=== PATIENT | male | born 1985 | race Caucasian/White ===

== ENCOUNTER 2020-04-20 08:03 | Emergency (ER) | payer SELFPAY ==
[~2020-04-20] VITALS: Ht 182.9 cm; Wt 112.0 kg
[2020-04-20 08:19] VITALS: BP 156/70
--- NOTE | 2020-04-20 08:35 | PHYS DOC ---
Past History Past Medical History: No Pertinent History Past Surgical History: No Surgical History Alcohol Use: Rarely Drug Use: None General Adult EDM: Chief Complaint: FLANK PAIN HPI: HPI: History obtained from patient. Patient is a 34-year-old male with no reported past medical history presents with chief complaint of sudden onset left flank pain 4 hours prior to arrival. He states the pain is sharp in nature and radiates to his left groin. He states it starts in his left mid flank. Does note to episodes of nonbloody nonbilious emesis. Denies fevers. States it is difficult to find a position of comfort. Denies history of kidney stones. Denies dysuria, hematuria, or polyuria. Denies decreased urinary output. States he does feel pelvic pressure like he has to have a bowel movement. States he did have a normal vomit yesterday. Denies syncope. Denies chest pain or shortness of breath. Denies cough or fever. Has not tried medicine prior to arrival. No other complaints. Review of Systems: Review of Systems: Constitutional: Denies fever or chills Eyes: Denies change in visual acuity HENT: Denies nasal congestion or sore throat Respiratory: Denies cough or shortness of breath Cardiovascular: Denies chest pain or edema GI: Positive for left flank pain : Denies dysuria Musculoskeletal: Denies back pain or joint pain Integument: Denies rash Neurologic: Denies headache, focal weakness or sensory changes Endocrine: Denies polyuria or polydipsia Lymphatic: Denies swollen glands Psychiatric: Denies depression or anxiety Allergies: Allergies: Allergies Coded Allergies Type Severity Reaction Last Updated Verified No Known Drug Allergies 11/06/15 No Physical Exam: PE: Constitutional: Well developed, well nourished, no acute distress, non-toxic appearance. [] HENT: Normocephalic, atraumatic, bilateral external ears normal, oropharynx moist, no oral exudates, nose normal. [] Eyes: PERRLA, EOMI, conjunctiva normal, no discharge. [] Neck: Normal range of motion, no tenderness, supple, no stridor. [] Cardiovascular:Heart rate regular rhythm, no murmur [] Lungs & Thorax: Bilateral breath sounds clear to auscultation [] Abdomen: Mild left CVA tenderness. Skin: Warm, dry, no erythema, no rash. [] Back: No tenderness, no CVA tenderness. [] Extremities: No tenderness, no cyanosis, no clubbing, ROM intact, no edema. [] Neurologic: Alert and oriented X 3, normal motor function, normal sensory function, no focal deficits noted. [] Psychologic: Affect normal, judgement normal, mood normal. [] Current Patient Data: Labs: Laboratory Tests Test 04/20/20 08:26 White Blood Count 9.7 x10^3/uL Red Blood Count 5.52 x10^6/uL Hemoglobin 16.8 g/dL Hematocrit 49.5 % Mean Corpuscular Volume 90 fL Mean Corpuscular Hemoglobin 30 pg Mean Corpuscular Hemoglobin Concent 34 g/dL Red Cell Distribution Width 13.6 % Platelet Count 187 x10^3/uL Neutrophils (%) (Auto) 75 % Lymphocytes (%) (Auto) 17 % Monocytes (%) (Auto) 7 % Eosinophils (%) (Auto) 2 % Basophils (%) (Auto) 1 % Neutrophils # (Auto) 7.2 x10^3uL Lymphocytes # (Auto) 1.6 x10^3/uL Monocytes # (Auto) 0.6 x10^3/uL Eosinophils # (Auto) 0.2 x10^3/uL Basophils # (Auto) 0.1 x10^3/uL Urine Collection Type Unknown Urine Color Yellow Urine Clarity Hazy Urine pH 6.5 Urine Specific [place] 1.025 Urine Protein 30 mg/dl Urine Glucose (UA) Neg mg/dL Urine Ketones (Stick) Neg mg/dL Urine Blood Mod Urine Nitrite Neg Urine Bilirubin Neg Urine Urobilinogen Dipstick 0.2 mg/dL Urine Leukocyte Esterase Neg Urine RBC 11-20 /HPF Urine WBC 1-4 /HPF Urine Squamous Epithelial Cells Occ /LPF Urine Bacteria Few /HPF Urine Mucus Mod /LPF Sodium Level 140 mmol/L Potassium Level 4.4 mmol/L Chloride Level 105 mmol/L Carbon Dioxide Level 28 mmol/L Anion Gap 7 Blood Urea Nitrogen 21 mg/dL Creatinine 1.3 mg/dL Estimated GFR (Cockcroft-Gault) 63.2 Glucose Level 133 mg/dL Calcium Level 9.2 mg/dL Current Medications Medications (Trade) Dose Ordered Sig/Woo Route PRN Reason Start Time Stop Time Status Last Admin Dose Admin Sodium Chloride 1,000 ml @ 1,000 mls/hr 1X ONCE IV 04/20/20 08:45 04/20/20 09:44 04/20/20 08:50 Ondansetron HCl (Zofran) 4 mg 1X ONCE IVP 04/20/20 08:45 04/20/20 08:46 DC 04/20/20 08:50 Ketorolac Tromethamine (Toradol 15mg Vial) 15 mg 1X ONCE IVP 04/20/20 08:45 04/20/20 08:46 DC 04/20/20 08:50 Metoclopramide HCl (Reglan Vial) 10 mg 1X ONCE IVP 04/20/20 09:00 04/20/20 09:06 DC 04/20/20 09:29 Hydromorphone HCl (Dilaudid) 1 mg 1X ONCE IV 04/20/20 09:15 04/20/20 09:18 DC 04/20/20 09:30 Vital Signs: Vital Signs Date Time Temp Pulse Resp B/P (MAP) Pulse Ox O2 Delivery O2 Flow Rate FiO2 04/20/20 09:30 16 99 EKG: EKG: [] Radiology/Procedures: Radiology/Procedures: [place] [address] IMAGING REPORT Signed PATIENT: ROB JOSEPH ACCOUNT: [id number] : 1985 LOCATION: ER AGE: 34 SEX: M EXAM STATUS: REG ER ORD. PHYSICIAN: TERELL KNIGHT DO REASON: L flank pain with nausea and vomiting onset this morning PROCEDURE: CT ABDOMEN PELVIS WO CONTRAST Examination: CT of the abdomen pelvis without contrast HISTORY: History of left flank pain COMPARISON: None TECHNIQUE: Axial CT images of the abdomen and pelvis are performed without contrast. Coronal and sagittal reformats are performed. Exposure: One or more of the following individualized dose reduction techniques were utilized for this examination: 1. Automated exposure control 2. Adjustmen t of the mA and/or kV according to patient size 3. Use of iterative reconstruction technique FINDINGS: The bibasilar lungs are clear. No evidence of free air identified in the abdomen. Decreased attenuation noted in the liver likely hepatic steatosis. Examination limited lack of IV contrast. The visualized spleen, adrenals grossly appears unremarkable. The gallbladder is mildly distended. The stomach is mildly distended. The visualized pancreas grossly appears unremarkable. Small bowel is nondilated. Feces and gas noted in the colon. The appendix is normal. Mild left-sided hydronephrosis and hydroureter identified with 3 mm calculus identified at the left ureterovesical junction. Urinary bladder is mildly distended. No evidence of lytic or destructive lesion. IMPRESSION: 1. 3 mm calculus identified in the left ureterovesical junction causing mild left-sided hydronephrosis and hydroureter. 2. Hepatic steatosis. Electronically signed by: Maico Queen MD (04/20/2020 8:57 AM) [id number] DICTATED AND SIGNED BY: MAICO QUEEN MD DATE: 04/20/20851 CC: PCP,UNKNOWN; TERELL KNIGHT DO ~MTH0 0 [] Heart Score: Risk Factors: Risk Factors: DM, Current or recent (<one month) smoker, HTN, HLP, family history of CAD, obesity. Risk Scores: Score 0 - 3: 2.5% MACE over next 6 weeks - Discharge Home Score 4 - 6: 20.3% MACE over next 6 weeks - Admit for Clinical Observation Score 7 - 10: 72.7% MACE over next 6 weeks - Early Invasive Strategies Course & Med Decision Making: Course & Med Decision Making Pertinent Labs and Imaging studies reviewed. (See chart for details) [] Patient is an uncomfortable appearing 34-year-old male who presents with chief complaint of sudden onset left flank pain. Initial vital signs unremarkable. CT imaging does reveal a 3 mm ureterolithiasis. Mild hydronephrosis. Kidney function normal. Urinalysis without obvious signs of infection. Patient was given analgesia and antiemetics. On repeat assessment his symptoms have been well controlled. He has tolerated p.o. I do feel he is appropriate for outpatient management. He will be discharged home with [place], Zofran, Flomax. He was given referral to urologist for further follow-up. Return precautions were discussed and understood. Patient stable for discharge home. Dragon Disclaimer: Devora Disclaimer: This electronic medical record was generated, in whole or in part, using a voice recognition dictation system. Departure Departure: Impression: Primary Impression: Ureterolithiasis Additional Impression: Nausea & vomiting Qualified Codes: R11.2 - Nausea with vomiting, unspecified Disposition: DC HOME SELF CARE/HOMELESS Condition: STABLE Referrals: PCP,UNKNOWN (PCP) Patient Instructions: Kidney Stones Additional Instructions: Dr. Andrae Lr MD. Urology Address: [address] [place] [address] Scripts Hydrocodone Bit/Acetaminophen (HYDROCODONE-APAP 5-325 ) 1 Each Tablet 1-2 TAB PO PRN Q6HRS PRN for PAIN, #10 TAB 0 Refills Prov: TERELL KNIGHT DO 04/20/20 Tamsulosin Hcl (FLOMAX) 0.4 Mg Cap.er.24h 1 CAP PO QHS for kidney stone, #9 CAP 11 Refills Prov: TERELL KNIGHT DO 04/20/20 Ondansetron Hcl (ZOFRAN) 4 Mg Tablet 4 MG PO TID PRN PRN for NAUSEA, #9 TAB Prov: TERELL KNIGHT DO 04/20/20 TERELL KNIGHT DO Apr 20, 2020 08:35
[2020-04-20] MEDS ORDERED: KETOROLAC 15 MG/ML VIAL. IVP ONE (08:45)
[2020-04-20] MEDS ORDERED: ONDANSETRON PF 4 MG/2 ML VIAL. IVP ONE (08:45)
[2020-04-20] MEDS ORDERED: IV NORMAL SALINE 1,000ML 1,000 ML IV ONE (08:45)
--- NOTE | 2020-04-20 08:59 | RAD ---
Examination: CT of the abdomen pelvis without contrast HISTORY: History of left flank pain COMPARISON: None TECHNIQUE: Axial CT images of the abdomen and pelvis are performed without contrast. Coronal and sagi ttal reformats are performed. Exposure: One or more of the following individualized dose reduction techniques were utilized for thi s examination: 1. Automated exposure control 2. Adjustment of the mA and/or kV according to patient size 3. Use of iterative reconstruction technique FINDINGS: The bibasilar lungs are clear. No evidence of free air identified in the abdomen. Decreased attenuation noted in the liver likely hepatic steatosis. Examination limited lack of IV contrast. The visualized spleen, adrenals grossly appears unremarkable . The gallbladder is mildly distended. The stomach is mildly distended. The visualized pancreas gross ly appears unremarkable. Small bowel is nondilated. Feces and gas noted in the colon. The appendix is normal. Mild left-sided hydronephrosis and hydroureter identified with 3 mm calculus identified at the left u reterovesical junction. Urinary bladder is mildly distended. No evidence of lytic or destructive lesion. IMPRESSION: 1. 3 mm calculus identified in the left ureterovesical junction causing mild left-sided hydronephrosi s and hydroureter. 2. Hepatic steatosis. Electronically signed by: Maico Queen MD (04/20/2020 8:57 AM) [id number]
[2020-04-20] MEDS ORDERED: METOCLOPRAMIDE HCL 10 MG/2 ML VIAL. IVP ONE (09:00)
[2020-04-20 09:04] LABS: BASO # 0.1 x10^3/uL (0.0-0.2); BASO % 1 % (0-3); EOS # 0.2 x10^3/uL (0.0-0.7); EOS % 2 % (0-3); HEMATOCRIT 49.5 % (39.0-53.0); HEMOGLOBIN 16.8 g/dL (13.0-17.5); LYMPH # 1.6 x10^3/uL (1.0-4.8); LYMPH % 17 % (24-48); MEAN CORPUSCULAR HEMOGLOBIN 30 pg (25-35); MEAN CORPUSCULAR HGB CONC 34 g/dL (31-37); MEAN CORPUSCULAR VOLUME 90 fL (79-100); MONO # 0.6 x10^3/uL (0.0-1.1); MONO % 7 % (0-9); NEUT # 7.2 x10^3uL (1.8-7.7); NEUT % 75 % (31-73); PLATELET COUNT 187 x10^3/uL (140-400); RED BLOOD COUNT 5.52 x10^6/uL (4.30-5.70); RED CELL DISTRIBUTION WIDTH 13.6 % (11.5-14.5); WHITE BLOOD COUNT 9.7 x10^3/uL (4.0-11.0)
[2020-04-20 09:14] LABS: CALCIUM 9.2 mg/dL (8.5-10.1); CREATININE 1.3 mg/dL (0.7-1.3); GFR 63.2; POTASSIUM 4.4 mmol/L (3.5-5.1)
[2020-04-20] MEDS ORDERED: HYDROmorphone PF 1 MG/ML DISP.SYRIN IV ONE (09:15)
[2020-04-20 09:32] LABS: BACTERIA,URINE FEW /HPF (0-FEW); BILIRUBIN,URINE NEG (NEG); CLARITY,URINE HAZY; COLOR,URINE YELLOW; GLUCOSE,URINE NEG (NEG); NITRITE,URINE NEG (NEG); SQUAMOUS EPITHELIAL CELL,UR OCC /LPF; UROBILINOGEN,URINE 0.2 mg/dL (0.2 mg/dL)
[2020-04-20] MEDS ORDERED: ONDA4TAB7 PO (09:39)
[2020-04-20] MEDS ORDERED: TAMS0.4C97 PO (09:39)
[2020-04-20] MEDS ORDERED: HYDR-2155 PO (09:39)
== END 2020-04-20 10:20 | disposition home or self-care (01) ==
LOC: ER 08:03
DX: N13.2 Hydronephrosis with renal and ureteral calculous obstruction (principal); R11.2 Nausea with vomiting, unspecified
CPT/HCPCS: 36415; 74176; 80048; 81001; 85025; 96361; 96374; 96375; 99284; J1170; J1885; J2405; J2765; J7030